=== PATIENT | male | born 1955 | race Two or more races ===

== ENCOUNTER 2018-11-24 16:46 | Emergency (ER) | payer OTHER ==
[~2018-11-24] VITALS: Ht 177.8 cm; Wt 108.0 kg
[~2018-11-24 16:46] MED LIST: ASPIR-MOX 325325 MG; IBUPROFEN800 MG PO; SEPTRA DS TABLE1 TAB PO
[2018-11-24] MEDS ORDERED: CARDIZEM30 MG (17:09)
[2018-11-24] MEDS ORDERED: FORTAMET500 MG (17:09)
[2018-11-24] MEDS ORDERED: SIMVASTATIN5 MG (17:09)
[2018-11-24] MEDS ORDERED: ASA81 MG (17:10)
== END 2018-11-24 19:55 | disposition home or self-care (01) ==
LOC: ER 16:46
DX: L08.89 Other specified local infections of the skin and subcutaneous tissue (principal); S81.802S Unspecified open wound, left lower leg, sequela; W45.8XXS Other foreign body or object entering through skin, sequela

== ENCOUNTER 2019-11-13 22:29 | Emergency (ER) | payer OTHER ==
[~2019-11-13] VITALS: Ht 177.8 cm; Wt 108.0 kg
[~2019-11-13 22:29] MED LIST changes: +ASA81 MG; +CARDIZEM30 MG; +FORTAMET500 MG; +SIMVASTATIN5 MG
[2019-11-14] MEDS ORDERED: CIPRO500 MG PO (01:44)
== END 2019-11-14 01:58 | disposition home or self-care (01) ==
LOC: ER 22:29
DX: R31.0 Gross hematuria (principal)